=== PATIENT | female | born 1975 | race Caucasian/White ===

== ENCOUNTER 2022-05-25 13:31 | Outpatient (CLI) | payer BC, SELFPAY | END 2022-05-25 13:32 | disposition home or self-care (01) | LOC: NFLDREF 13:33 | PROVIDERS: PCP Family Medicine; Visit Provider Registered Nurse | DX: R63.5 Abnormal weight gain (principal) | CPT/HCPCS: 84443 ==

== ENCOUNTER 2022-07-08 06:58 | Outpatient (CLI) | payer BC, SELFPAY ==
--- NOTE | 2022-07-08 07:21 | W.ANESCHARGE ---
Anesthesia Charges Start Date/Time Anesthesia Start Date: 07/08/22 Anesthesia Start Time: 07:42 Stop Date/Time Anesthesia Stop Date: 07/08/22 Anesthesia Stop Time: 08:05
--- NOTE | 2022-07-08 08:10 | W.ANESCHARGE ---
Anesthesia Charges Start Date/Time Anesthesia Start Date: 07/08/22 Anesthesia Start Time: 07:42 Stop Date/Time Anesthesia Stop Date: 07/08/22 Anesthesia Stop Time: 08:05
== END 2022-07-08 06:59 | disposition home or self-care (01) ==
LOC: OP CLINIC 06:59
PROVIDERS: PCP Family Medicine; Visit Provider Internal Medicine
DX: Z12.11 Encounter for screening for malignant neoplasm of colon (principal); K63.5 Polyp of colon; K57.30 Diverticulosis of large intestine without perforation or abscess without bleeding; K64.8 Other hemorrhoids
CPT/HCPCS: 00811; 00812; 45378; 88305; J2704

== ENCOUNTER 2022-10-10 15:50 | Outpatient (CLI) | payer BC, SELFPAY ==
[2022-10-10 20:27] LABS: Chlamydia DNA Amplified* NOT DETECTED (No Detected); GC DNA Amplified* NOT DETECTED (No Detected)
== END 2022-10-10 15:51 | disposition home or self-care (01) ==
PROVIDERS: PCP Family Medicine; Visit Provider Physician Assistant
DX: Z11.3 Encounter for screening for infections with a predominantly sexual mode of transmission (principal)
CPT/HCPCS: 86592; 86703; 86803; 87340; 87491; 87591

== ENCOUNTER 2023-01-06 13:56 | Outpatient (CLI) | payer BC, SELFPAY ==
[2023-01-06 23:09] LABS: Chlamydia DNA Amplified* NOT DETECTED (No Detected); GC DNA Amplified* NOT DETECTED (No Detected)
== END 2023-01-06 13:57 | disposition home or self-care (01) ==
LOC: FRMREF 13:57
PROVIDERS: PCP Family Medicine; Visit Provider Registered Nurse
DX: Z11.3 Encounter for screening for infections with a predominantly sexual mode of transmission (principal)
CPT/HCPCS: 87491; 87591

== ENCOUNTER 2023-09-22 10:50 | Outpatient (CLI) | payer BC, SELFPAY | END 2023-09-22 10:51 | disposition home or self-care (01) | PROVIDERS: PCP Family Medicine; Visit Provider Registered Nurse | DX: Z13.1 Encounter for screening for diabetes mellitus (principal); Z13.220 Encounter for screening for lipoid disorders | CPT/HCPCS: 80061; 82947 ==

== ENCOUNTER 2024-11-29 09:25 | Outpatient (CLI) | payer BC, SELFPAY ==
[2024-11-29 15:34] LABS: Chlamydia DNA Amplified* NOT DETECTED (No Detected); GC DNA Amplified* NOT DETECTED (No Detected)
[2024-11-29 16:55] LABS: Bacterial Vaginosis* POSITIVE (Negative); Candida glab/krus NOT DETECTED (No Detected)
== END 2024-11-29 09:26 | disposition home or self-care (01) ==
PROVIDERS: PCP Family Medicine; Visit Provider Registered Nurse
DX: Z13.6 Encounter for screening for cardiovascular disorders (principal); Z11.3 Encounter for screening for infections with a predominantly sexual mode of transmission; Z12.4 Encounter for screening for malignant neoplasm of cervix; Z11.4 Encounter for screening for human immunodeficiency virus [HIV]
CPT/HCPCS: 80061; 81513; 86592; 86703; 86803; 87340; 87481; 87491; 87591; 87661